=== PATIENT | male | born 1990 | race Caucasian/White ===

== ENCOUNTER 2021-08-11 07:23 | Day surgery (SDC) | payer OTHER ==
[2021-08-11] VITALS (9 sets, daily range): BP systolic 133–149; BP diastolic 76–101
[~2021-08-11] VITALS: Ht 182.9 cm; Wt 99.8 kg
--- NOTE | 2021-08-11 07:40 | NUR ---
PT ARRIVED AMBULATORY ACCOMPANIED BY [facility] STAFF; PT ORIENTED TO ROOM
[2021-08-11 09:24] LABS: HEMATOCRIT 40.4 % (39.0-50.0); HEMOGLOBIN 13.8 g/dl (14.0-18.0); IMMATURE GRANULOCYTES 0.1 % (0.0-5.0); MEAN CELL VOLUME 84.7 fL CALC (80.0-100.0); MEAN CORPUSCULAR HGB 28.9 pG CALC (26.0-32.0); MEAN CORPUSCULAR HGB CONC 34.2 g/dL CAL (32.0-36.0); NEUT# 3.08 thou/uL (1.82-7.42); RED BLOOD COUNT 4.77 mill/uL (4.70-6.10); RED CELL DISTRI WIDTH 12.7 % (11.5-15.5)
--- NOTE | 2021-08-11 09:30 | NUR ---
DR WOODY AT BEDSIDE DISCUSSING POC
[2021-08-11 09:43] LABS: ALBUMIN 4.2 g/dL (3.2-5.0); ALKALINE PHOSPHATASE 73 u/l (38-126); ANION GAP 12 (6-22 (CALC)); BILIRUBIN, TOTAL 0.7 mg/dL (0.0-1.4); BUN 14 mg/dL (9-20); BUN/CREATININE RATIO 15 (12-20 (CALC)); CARBON DIOXIDE 32 mmol/l (22-30); CHLORIDE 100 mmol/l (95-108); GFR > 60 ML/MIN (>=60 (CALC)); GFR FOR AFR.AMER. > 60 ML/MIN (>=60 (CALC)); POTASSIUM 4.3 mmol/l (3.5-5.1); SGOT/AST 32 u/l (17-59); SODIUM 139 mmol/l (137-146); TOTAL PROTEIN 7.2 g/dL (6.3-8.2)
--- NOTE | 2021-08-11 13:12 | NUR ---
PT TAKEN VIA BED IN STABLE CONDITION ACCOMANIED BY THIS RESIDENT PROGRAM SPECIALIST AND BRITTANY RAMSAY FOR [facility] PROCEDURE
[2021-08-11] MEDS ORDERED: CLONIDINE0.1 MG PO (15:01)
[2021-08-11] MEDS ORDERED: NALTREXONE50 MG PO (15:02)
[2021-08-11] MEDS ORDERED: KLONOPIN0.5 MG PO (15:02)
--- NOTE | 2021-08-11 19:15 | NUR ---
PT TO ROOM VIA BED ACCOMPANIED BY STAFF; PT DOWSY/AROUSABLE; NO S/SX OF DISTRESS NOTED; O2 2L VIA NC; IVF INFUSING WITHOUT DIFFICULTY; VS OBTAINED; BED ALARM IN PLACE FOR PT SAFETY; CALL [facility] WITHIN REACH; WILL CONTINUE TO MONITOR.
--- NOTE | 2021-08-11 23:00 | NUR ---
REPORT RECEIVED FROM Eric CARSON RN AT BEDSIDE. CARE OF PT ASSUMED AT THIS TIME.
--- NOTE | 2021-08-12 03:12 | NUR ---
PT WAKES FROM SLEEP AND LEANS OVER BED AND HAS LARGE BROWN LIQUID EMESIS ON FLOOR. PT FREE OF ASPIRATION. AIRWAY CLEAR. STATES "I FEEL OK NOW". PRN PHENERGAN ADMINISTERED. SET UP AND ASSISTED WITH ORAL CARE.
[2021-08-12 03:20] VITALS: BP 145/86
--- NOTE | 2021-08-12 04:19 | NUR ---
Juan MONTGOMERY LAW REPORTER IN ROOM COLLECTING AM LABS.
[2021-08-12 05:30] LABS: HEMATOCRIT 41.4 % (39.0-50.0); HEMOGLOBIN 14.8 g/dl (14.0-18.0); IMMATURE GRANULOCYTES 0.2 % (0.0-5.0); MEAN CELL VOLUME 80.7 fL CALC (80.0-100.0); MEAN CORPUSCULAR HGB 28.8 pG CALC (26.0-32.0); MEAN CORPUSCULAR HGB CONC 35.7 g/dL CAL (32.0-36.0); NEUT# 11.66 thou/uL (1.82-7.42); RED BLOOD COUNT 5.13 mill/uL (4.70-6.10); RED CELL DISTRI WIDTH 12.3 % (11.5-15.5)
[2021-08-12 05:48] LABS: ANION GAP 18 (6-22 (CALC)); BUN 14 mg/dL (9-20); BUN/CREATININE RATIO 18 (12-20 (CALC)); CHLORIDE 101 mmol/l (95-108); CREATININE 0.8 mg/dL (0.7-1.3); GFR > 60 ML/MIN (>=60 (CALC)); GFR FOR AFR.AMER. > 60 ML/MIN (>=60 (CALC)); POTASSIUM 3.6 mmol/l (3.5-5.1); SODIUM 139 mmol/l (137-146)
[2021-08-12 05:54] LABS: CARBON DIOXIDE 24 mmol/l (22-30)
--- NOTE | 2021-08-12 07:00 | NUR ---
REPORT RECEIVED FROM SOBIA CUMMINGS. PATIENT IS SLEEPING IN BED ON HIS RIGHT SIDE WITH NO DISTRESS NOTED. CALL LIGHT IN REACH.
[2021-08-12 08:31] VITALS: BP 157/88
--- NOTE | 2021-08-12 08:38 | NUR ---
ASSESSMENT DONE. PATIENT IS ALERT X2 BUT SLEEPY. RESPS EVEN AND UNLABORED. PATIENT DENIES PAIN. SETUP PATIENT FOR BREAKFAST BUT PATIENT STATED LATER HE WOULD EAT. MIX THE POTASSIUM 80MEQ POWDER WITH JUICE PER ORDER BUT PATIENT ONLY TOOK A FEW SIPS. ENCOURAGE PATEINT TO DRINK MORE AND HE STATED LATER. PATIENT DENIES ANY OTHER NEEDS AT THIS TIME. SAFETY PRECAUTIONS REINFORCED AND CALL LIGHT IN REACH.
--- NOTE | 2021-08-12 09:03 | NUR ---
PATIENT TOOK ONE SMALL SIPS OF THE POTASSIUM DRINK. HE STATED HE WILL DRINK MORE LATER. CALL LIGHT IN REACH.
[2021-08-12 11:26] VITALS: BP 153/89
--- NOTE | 2021-08-12 11:26 | NUR ---
PATIENT TOOK A SMALL SIP OF THE POTASSIUM. PATIENT STATED HE WILL DRINK MORE LATER. SETUP PATIENT FOR A SHOWER AND CALL LIGHT IN REACH.
--- NOTE | 2021-08-12 12:15 | NUR ---
SETUP PATIENT FOR LUNCH BUT PATIENT STATED LATER.
--- NOTE | 2021-08-12 14:39 | NUR ---
PATIENT STATED HE DID NOT WANT HIS LUNCH BUT DID DRINK PO FLUIDS. GAVE PATIENT A BANANA AND HE IS EATING IT. PATIENT STATED HE WANTS TO GO HOME. NOTIFY PATIENT WE WAITING FOR THE [facility] STAFF. PATIENT VERBALIZE UNDERSTANDING. CALL LIGHT IN REACH.
[2021-08-12 15:19] VITALS: BP 155/86
--- NOTE | 2021-08-12 15:27 | NUR ---
PATIENT IS RESTING IN BED WITH NO DISTRESS NOTED. PATIENT DENIES NEEDS. CALL LIGHT IN REACH.
--- NOTE | 2021-08-12 17:31 | NUR ---
Discharge instructions given. Patient verbalizes understanding of same. Discharged in stable condition via WALKING to Home with [facility] staff. All belongings sent with pt.
== END 2021-08-12 17:31 | disposition home or self-care (01) | DRG 897 ==
LOC: ANR 07:23 → MS2 07:26 → ANR 08:22
PROVIDERS: ATTEND Anesthesiology
DX: F11.20 Opioid dependence, uncomplicated (principal)
CPT/HCPCS: J2060; J2354